=== PATIENT | female | born 1995 | race Caucasian/White ===

== ENCOUNTER 2017-01-06 09:27 | Emergency (ER) | payer BC | END 2017-01-06 12:07 | disposition home or self-care (01) | LOC: D.ER 09:27 | DX: R07.89 Other chest pain (principal); M25.511 Pain in right shoulder; S14.106A Unspecified injury at C6 level of cervical spinal cord, initial encounter; V49.9XXA Car occupant (driver) (passenger) injured in unspecified traffic accident, initial encounter; Y93.89 Activity, other specified; Y92.410 Unspecified street and highway as the place of occurrence of the external cause; S14.107A Unspecified injury at C7 level of cervical spinal cord, initial encounter; S12.500A Unspecified displaced fracture of sixth cervical vertebra, initial encounter for closed fracture ==